=== PATIENT | male | born 1965 | race Two or more races ===

== ENCOUNTER 2024-07-19 18:48 | Emergency (ER) | payer BC ==
[~2024-07-19] VITALS: Ht 182.9 cm; Wt 90.7 kg
[2024-07-19 20:26] LABS: HEMATOCRIT 38.7 % (39.0-48.0); HEMOGLOBIN 13.5 g/dL (13-16.00); MEAN CELL VOLUME 86.5 fL (80.0-100.00); MEAN CORPUSCULAR HEMOGLOBIN 30.2 pg (27.00-32.0); MEAN CORPUSCULAR HGB CONC 34.9 g/dl (32.0-36.0); PLATELET COUNT 229 K/uL (150-450); RED BLOOD COUNT 4.47 M/uL (4.00-6.00); RED CELL DISTRIBUTION WIDTH 12.5 % (11.5-14.5)
[2024-07-19 20:46] LABS: ALBUMIN 3.3 gm/dL (3.4-5.0); BILIRUBIN TOTAL 0.65 mg/dL (0.3-1.2); CALCIUM 8.3 mg/dL (8.5-10.1); CREATININE SERUM 1.06 mg/dL (0.70-1.30); GFR 71.02; GLOBULINA 3.4 G/DL (2.4-3.5); POTASSIUM 3.67 mEq/L (3.5-5.1); TOTAL PROTEIN 6.7 gm/dL (6.4-8.2)
== END 2024-07-19 22:44 | disposition home or self-care (01) ==
LOC: ER 18:48
PROVIDERS: General Practice
DX: R53.81 Other malaise (principal); R55 Syncope and collapse; Z88.0 Allergy status to penicillin